=== PATIENT | female | born 1985 | race Caucasian/White ===

== ENCOUNTER → 2017-03-13 | Outpatient (CLI) | payer OTHER ==
[~2017-03-13] MED LIST: None per pt.
== END | disposition home or self-care (01) ==
LOC: CFH 12:03
PROVIDERS: ATTEND Nurse Practitioner Family
DX: M79.645 Pain in left finger(s) (principal)

== ENCOUNTER → 2017-04-06 | Outpatient (CLI) | payer OTHER | END | disposition home or self-care (01) | LOC: CFH 07:18 | PROVIDERS: ATTEND Nurse Practitioner Family | DX: Z12.31 Encounter for screening mammogram for malignant neoplasm of breast (principal); Z80.3 Family history of malignant neoplasm of breast | CPT/HCPCS: G0202 ==

== ENCOUNTER → 2017-10-24 | Outpatient (CLI) | payer OTHER | END | disposition home or self-care (01) | LOC: CFH 13:17 | PROVIDERS: ATTEND Nurse Practitioner Family | DX: S92.511A Displaced fracture of proximal phalanx of right lesser toe(s), initial encounter for closed fracture (principal); R05 Cough; X58.XXXA Exposure to other specified factors, initial encounter; Y93.89 Activity, other specified; Y92.89 Other specified places as the place of occurrence of the external cause; Y99.8 Other external cause status | CPT/HCPCS: 71046 ==

== ENCOUNTER 2019-04-15 05:18 | Emergency (ER) | payer OTHER ==
[~2019-04-15] VITALS: Ht 172.7 cm; Wt 101.7 kg
--- NOTE | 2019-04-15 05:26 | NUR ---
RIGHT FLANK PAIN 07/11 WITH NAUSEA SINCE 429 per triage note pt was wheeled in the rm by staff
[2019-04-15] MEDS ORDERED: SODIUM CHLORIDE FLUSH 10ML SYR IVF ONE (06:00)
[2019-04-15] MEDS ORDERED: ONDANSETRON 2MG/ML, 2ML IVPush ONE (06:00)
[2019-04-15 06:10] LABS: BASOPHILS # (AUTO) 0.03 x10^3/uL (0-0.1); BASOPHILS % (AUTO) 0 % (0-1); EOSINOPHILS # (AUTO) 0.25 x10^3/uL (0-0.4); EOSINOPHILS % (AUTO) 4 % (1-7); LYMPHOCYTES # (AUTO) 1.26 x10^3/uL (1-3.4); LYMPHOCYTES % (AUTO) 18 % (22-44); MD NO; MEAN CORPUSCULAR HEMOGLOBIN 31.5 pg (27.0-34.8); MEAN CORPUSCULAR HGB CONC 34.1 g/dL (32.4-35.8); MEAN CORPUSCULAR VOLUME 92.3 fL (80-100); MEAN PLATELET VOLUME 7.9 fL (7.4-10.4); MONOCYTES # (AUTO) 0.58 x10^3/uL (0.2-0.8); MONOCYTES % (AUTO) 8 % (2-9); NEUTROPHILS # (AUTO) 5.04 x10^3/uL (1.8-6.8); NEUTROPHILS % (AUTO) 70 % (42-75); PLATELET COUNT 216 x10^3/uL (130-400); RED BLOOD COUNT 4.44 x10^6/uL (3.82-5.3); RED CELL DISTRIBUTION WIDTH 12.9 % (9.6-15.2)
[2019-04-15] MEDS ORDERED: ONDANSETRON 2MG/ML, 2ML ONE (06:12)
[2019-04-15 06:21] LABS: ALANINE AMINOTRANSFERASE 36 U/L (12-78); ALBUMIN 3.7 g/dL (3.4-5.0); ANION GAP 6 mmol/L (5-15); CALCIUM 8.4 mg/dL (8.5-10.1); CHLORIDE 112 mmol/L (98-107)
[2019-04-15] MEDS ORDERED: MORPHINE SULFATE 4 MG/ML, 1ML ONE ×2 (06:21→07:35)
[2019-04-15] MEDS: MORPHINE SULFATE 4 MG/ML, 1ML IVPush PRN ×2 (06:23→07:37)
[2019-04-15 06:24] LABS: ALKALINE PHOSPHATASE 50 U/L (45-117); BILIRUBIN,TOTAL 0.3 mg/dL (0.2-1.0); CREATININE 0.75 mg/dL (0.55-1.02); TOTAL PROTEIN 6.9 g/dL (6.4-8.2)
--- NOTE | 2019-04-15 06:25 | NUR ---
MEDICATED PT IS RESTING VSS STABLE
--- NOTE | 2019-04-15 06:59 | NUR ---
ASSUMED CARE. PT MORE COMFORTABLE SINCE MEDICATED PER MAR. PT UOB TO GIVE URINE SAMPLE. NO ASSISTANCE NEEDED.
--- NOTE | 2019-04-15 06:59 | NUR ---
[id number] NOTE WRITTEN BY SAKINA, NOT NIHARIKA
--- NOTE | 2019-04-15 07:39 | NUR ---
RIGHT FLANK/LOW BACK PAIN RETURNED. PT MOANING. MEDICATED PER ORDERS
[2019-04-15 07:43] LABS: CULTURE INDICATED? YES; HCG UR SG 1.025 (1.003-1.030); MICROSCOPIC INDICATED
[2019-04-15] MEDS ORDERED: KETOROLAC 30 MG/1 ML ONE (08:54)
[2019-04-15] MEDS ORDERED: KETOROLAC 30 MG/1 ML IVPush ONE (09:00)
--- NOTE | 2019-04-15 09:00 | NUR ---
PAIN IMPROVED. TALKING TO PT ABOUT FINDINGS AND POC
[2019-04-15 09:21] VITALS: BP 109/72
== END 2019-04-15 09:23 | disposition home or self-care (01) ==
LOC: ED 09:04
DX: N13.2 Hydronephrosis with renal and ureteral calculous obstruction (principal)
CPT/HCPCS: 36415; 74176; 80053; 81001; 81025; 84703; 85025; 87086; 96374; 96375; 96376; 99284; J1885; J2270; J2405